=== PATIENT | female | born 1975 | race Caucasian/White ===

== ENCOUNTER 2018-09-30 12:43 | Emergency (ER) | payer OTHER ==
[2018-09-30] MEDS: KETOROLAC 60 MG INJ IM (15:32)
== END 2018-09-30 15:52 | disposition home or self-care (01) ==
LOC: FTE 12:43
DX: J06.9 Acute upper respiratory infection, unspecified (principal); R07.9 Chest pain, unspecified
CPT/HCPCS: 71045; 81025; 87400; 93005; 96372; 99285-25